=== PATIENT | female | born 1990 | race African-American/Black ===

== ENCOUNTER 2022-02-05 14:27 | Day surgery (SDC) | payer OTHER ==
[2022-02-05] MEDS ORDERED: hydrALAZINE 20 MG/ML VIAL SLOW IVP PRN (15:50)
[2022-02-05 17:43] VITALS: BMI 46.5
== END 2022-02-05 19:45 | disposition home or self-care (01) ==
LOC: CSHLD/OP 14:27
PROVIDERS: ATTEND Family Medicine
DX: O47.1 False labor at or after 37 completed weeks of gestation (principal); O99.820 Streptococcus B carrier state complicating pregnancy; Z3A.38 38 weeks gestation of pregnancy

== ENCOUNTER 2022-02-06 01:06 | Inpatient (IN) | payer OTHER ==
[2022-02-06 01:24] VITALS: BMI 38.5
[2022-02-06] MEDS ORDERED: Promethazine HCl 25 MG/ML VIAL IM PRN ×2 (01:30→03:11)
[2022-02-06] MEDS ORDERED: Methylergonovine 0.2 MG/ML VIAL IM PRN (01:30)
[2022-02-06] MEDS ORDERED: hydrALAZINE 20 MG/ML VIAL SLOW IVP PRN ×2 (01:30→09:23)
[2022-02-06] MEDS ORDERED: Lactated Ringer's 1,000 ML IV SCH (01:30)
[2022-02-06] MEDS ORDERED: Misoprostol 200 MCG TAB PR PRN (01:30)
[2022-02-06] MEDS ORDERED: Diphenoxylate HCl/Atropine Tablet PO PRN (01:30)
[2022-02-06] MEDS ORDERED: Carboprost 250 MCG/ML AMP IM PRN (01:30)
[2022-02-06] MEDS ORDERED: Ibuprofen 800 MG TAB PO PRN (01:30)
[2022-02-06] MEDS ORDERED: Lidocaine 1% (PF) 30 ML VIAL SC PRN (01:30)
[2022-02-06] MEDS ORDERED: Ondansetron PF 4 MG/2 ML Vial IVP PRN ×3 (01:30→09:23)
[2022-02-06] MEDS ORDERED: Penicillin G Potassium 5 MILL.UNITS in Sodium Chloride 0.9% 100 ML IVPB SCH (01:30)
[2022-02-06] MEDS ORDERED: Penicillin G Potassium 5 MILL.UNITS VIAL ONE (01:39)
[2022-02-06] MEDS ORDERED: Fentanyl 2 mcg/Bup 0.1% Cadd 100 ML ONE (02:06)
[2022-02-06 02:16] LABS: Hemoglobin 11.8 g/dL (12.0-15.5); Mean Corpuscular HGB CONC 31.8 g/dL (32.0-36.0); Mean Corpuscular Hemoglobin 21.3 pg (27.0-33.0); Mean Corpuscular Volume 67.1 fl (81.6-98.3); Mean Platelet Volume 10.8 fl (7.4-10.4); Platelet Count 295 10x3/uL (150-450); RBC Distribution Width 16.9 % (11.5-14.5); Red Blood Cell (RBC) Count 5.53 10x6/uL (3.90-5.03); White Blood Cell (WBC) Count 12.2 10x3/uL (3.5-10.5)
[2022-02-06 02:34] LABS: Hep B Surf Ag Non-Reactive S/CO (NonReactive)
[2022-02-06 02:35] LABS: Syphilis Antibody Nonreactive (Nonreactive); Syphilis Antibody Index 0.06 S/CO (<1.00 Non-Reactive)
[2022-02-06 02:36] LABS: HBSAg Index 0.15 S/CO (0-0.99)
[2022-02-06] MEDS ORDERED: diphenhydrAMINE 50 MG/ML VIAL IVP PRN (03:11)
[2022-02-06] MEDS ORDERED: Naloxone HCl 0.4 mg/ml Vial IVP PRN ×2 (03:11)
[2022-02-06] MEDS ORDERED: Acetaminophen 325 MG TAB PO PRN (03:11)
[2022-02-06] MEDS ORDERED: ePHEDrine Sulfate 50 MG/10 ML VIAL SLOW IVP PRN (03:11)
[2022-02-06] MEDS ORDERED: Moisturizing Cream (Eucerin) 113 GM JAR TOP PRN (03:11)
[2022-02-06] MEDS ORDERED: Lactated Ringer's 500 ML IV PRN (03:11)
[2022-02-06] MEDS ORDERED: Fentanyl 2 mcg/Bupivacaine 0.1% Cassette 100 ML EPIDURAL SCH (03:15)
[2022-02-06] MEDS ORDERED: Communication Order-Pharmacy FS SCH (03:15)
[2022-02-06] MEDS ORDERED: Butorphanol Tartrate 1 MG/ML VIAL SLOW IVP PRN (03:30)
[2022-02-06] MEDS ORDERED: Butorphanol Tartrate 1 MG/ML VIAL ONE (03:34)
[2022-02-06] MEDS ORDERED: Penicillin G 2.5 MILL.units 2.5 MILL.UNITS in Premix Bag 1 BAG IVPB SCH (05:30)
[2022-02-06] MEDS: NS w/ Oxytocin 30 units 500 ML IV SCH ×2 (07:39→08:35)
[2022-02-06] MEDS ORDERED: Bupivacaine 0.25% HCL 30 ML VIAL ONE (08:00)
[2022-02-06] MEDS ORDERED: Bisacodyl 10 MG SUPP PR PRN (09:23)
[2022-02-06] MEDS ORDERED: Boostrix 0.5 ML (Tdap) VIAL IM ONE (09:23)
[2022-02-06] MEDS ORDERED: diphenhydrAMINE 25 MG CAP PO PRN (09:23)
[2022-02-06] MEDS ORDERED: HYDROcodone/Acetaminophen 5/325 mg Tablet PO PRN (09:23)
[2022-02-06] MEDS ORDERED: Milk Of Magnesia 30 ML UDCUP PO PRN (09:23)
[2022-02-06] MEDS ORDERED: Lanolin Ointment 7 GM TUBE TOP PRN (09:23)
[2022-02-06] MEDS ORDERED: NS w/ Oxytocin 30 units 500 ML IV SCH (09:23)
[2022-02-06] MEDS ORDERED: Benzocaine-Menthol 82.5 ML CAN TOP PRN (09:23)
[2022-02-06] MEDS ORDERED: Ferrous Sulfate 325 MG TAB PO SCH (10:00)
[2022-02-06] MEDS ORDERED: Prenatal Vitamin 1 TAB PO SCH (10:00)
[2022-02-06] MEDS ORDERED: Docusate 100 MG CAP PO SCH (10:00)
[2022-02-06 11:12] LABS: HIV (1/2) Antibody/Antigen Non-Reactive (NonReactive); HIV 1/2 INDEX 0.08 S/CO (<1.00)
[2022-02-06] MEDS: Ibuprofen 800 MG TAB PO SCH ×2 (14:14→21:29)
[2022-02-06] MEDS: Ferrous Sulfate 325 MG TAB PO SCH (17:30)
[2022-02-06] MEDS: Docusate 100 MG CAP PO SCH (21:29)
[2022-02-07] MEDS: Ibuprofen 800 MG TAB PO SCH ×2 (05:10→14:18)
[2022-02-07 07:17] VITALS: BP 120/81; TEMP 97.8
[2022-02-07] MEDS: Ferrous Sulfate 325 MG TAB PO SCH (08:54)
[2022-02-07] MEDS: Docusate 100 MG CAP PO SCH (08:55)
[2022-02-07] MEDS ORDERED: Prenatal Vitamin 1 TAB PO SCH (09:00)
== END 2022-02-07 15:40 | disposition home or self-care (01) | DRG 807 ==
LOC: CSHLD/OP 01:06 → CSHLD 01:40 → CSHPP 12:54
PROVIDERS: ADMIT Family Medicine; ATTEND Family Medicine
PROC: 10E0XZZ Delivery of Products of Conception, External Approach (ICD-10-PCS; principal; 2022-02-06)
DX: O99.824 Streptococcus B carrier state complicating childbirth (principal); Z37.0 Single live birth; Z3A.38 38 weeks gestation of pregnancy
CPT/HCPCS: 85027; 86780; 86850; 86900; 86901; 87340; 87389; J0595; J2540; J2590; S0020